=== PATIENT | male | born 1955 | race Caucasian/White ===

== ENCOUNTER 2017-08-10 22:11 | Emergency (ER) | payer MEDICARE ==
[2017-08-10] MEDS: NORMAL SALINE 1000 ML 1,000 ML IV PRN ×2 (22:56→22:57)
--- NOTE | 2017-08-10 23:01 | ER Document Report ---
ED General - General Chief Complaint: Syncope Stated Complaint: FALL Time Seen by Provider: 08/10/17 22:19 Mode of Arrival: Medic Information source: Patient, Relative, Emergency Med Personnel, [facility] Records Notes: 62-year-old male with hyperlipidemia, COPD, seizures, previous CVA, daily alcohol use presents via EMS after what patient reports to be a trip and fall but bystanders thought to be a syncopal episode with seizure-like activity. Per the patient he tripped and fell while walking landing onto his right side. He denies loss of consciousness. He does admit to being outside all day at a pool green party. He states he only had 2 beers. Patient currently complaining of right shoulder and right elbow pain. He denies any preceding chest pain, palpitations, shortness of breath. EMS reports that the patient was found sitting in a chair alert and awake. Patient states he has been compliant with his seizure medications but is unsure what the name is. TRAVEL OUTSIDE OF THE [place] IN LAST 30 DAYS: No - HPI Onset: Just prior to arrival Onset/Duration: Sudden Quality of pain: Stabbing, Throbbing Severity: Moderate Associated symptoms: denies: Chest pain, Headache, Nausea, Vomiting, Shortness of breath, Sweating Exacerbated by: Movement Relieved by: Remaining still Similar symptoms previously: No Recently seen / treated by doctor: Yes - Related Data Allergies/Adverse Reactions: No Known Allergies Allergy (Verified 12/23/16 09:06) Past Medical History - General Information source: Patient, Emergency Med Personnel, [facility] Records - Social History Smoking Status: Former Smoker Frequency of alcohol use: Heavy Drug Abuse: None Lives with: Family Family History: Reviewed & Not Pertinent Patient has suicidal ideation: No Patient has homicidal ideation: No - Past Medical History Cardiac Medical History: Reports: Hx Hypercholesterolemia, Hx Hypertension Pulmonary Medical History: Reports: Hx COPD Neurological Medical History: Reports: Hx Seizures Renal/ Medical History: Denies: Hx Peritoneal Dialysis Past Surgical History: Reports: Hx Abdominal Surgery, Hx Cardiac Surgery, Hx Open Heart Surgery - Immunizations Hx Diphtheria, Pertussis, Tetanus Vaccination: No Review of Systems - Review of Systems Constitutional: denies: Fever, Weakness EENT: denies: Blurred vision, Difficulty swallowing Cardiovascular: denies: Chest pain, Palpitations, Heart racing, Dyspnea, Syncope , Lightheaded Respiratory: denies: Cough, Short of breath Gastrointestinal: denies: Abdominal pain, Nausea, Vomiting Genitourinary: denies: Dysuria, Flank pain Musculoskeletal: Joint pain, Muscle pain, Muscle stiffness. denies: Back pain, Neck pain Skin: Other - Right elbow abrasion Hematologic/Lymphatic: denies: Easy bruising Neurological/Psychological: denies: Confusion, Weakness, Seizure, Lost consciousness, Headaches, Speech impairment, Numbness, Suicidal ideation -: Yes All other systems reviewed and negative Physical Exam - Vital signs Vitals: Resp Pulse Ox 14 94 08/10/17 22:23 08/10/17 22:23 - Notes Notes: PHYSICAL EXAMINATION: GENERAL: Well-appearing, well-nourished and in no acute distress. GCS 15 HEAD: Atraumatic, normocephalic. EYES: Pupils equal round and reactive to light, extraocular movements intact, sclera anicteric, conjunctiva are normal. ENT: Nares patent, oropharynx clear without exudates. Moist mucous membranes. No hemanotympanum . No blood in nares. No dental fracture NECK: Normal range of motion, supple without lymphadenopathy. Trachea midline. No midline tenderness. LUNGS: Breath sounds clear to auscultation bilaterally and equal. No wheezes rales or rhonchi. HEART: Regular rate and rhythm without murmurs. Pulses intact all throughout. ABDOMEN: Soft, nontender, nondistended abdomen. No guarding, no rebound. No masses appreciated. Musculoskeletal: Right shoulder deformity, limited range of motion secondary to pain. No neuro deficits. Radial pulse intact. Sensation intact. Right elbow tender to palpation associated abrasion. NEUROLOGICAL: Cranial nerves grossly intact. Normal speech, normal gait. Normal sensory, motor, and reflex exams. PSYCH: Normal mood, normal affect. SKIN: Abrasion right elbow. Course - Re-evaluation Re-evalutation: Laboratory 08/10/17 08/10/17 08/10/17 22:48 22:48 22:48 WBC 8.0 RBC 4.05 L Hgb 13.1 L Hct 37.9 MCV 94 MCH 32.3 MCHC 34.5 RDW 14.8 H Plt Count 166 Seg Neutrophils % 54.9 Lymphocytes % 35.5 Monocytes % 6.7 Eosinophils % 2.2 Basophils % 0.7 Absolute Neutrophils 4.4 Absolute Lymphocytes 2.8 Absolute Monocytes 0.5 Absolute Eosinophils 0.2 Absolute Basophils 0.1 Sodium Cancelled Potassium Cancelled Chloride Cancelled Carbon Dioxide Cancelled Anion Gap Cancelled BUN Cancelled Creatinine Cancelled Est GFR ( Amer) Cancelled Est GFR (Non-Af Amer) Cancelled Glucose Cancelled Lactic Acid Calcium Cancelled Total Bilirubin Cancelled Direct Bilirubin Cancelled Neonat Total Bilirubin Cancelled Neonat Direct Bilirubin Cancelled Neonat Indirect Bili Cancelled AST Cancelled ALT Cancelled Alkaline Phosphatase Cancelled Creatine Kinase Cancelled CK-MB (CK-2) Cancelled Troponin I Cancelled Total Protein Cancelled Albumin Cancelled Serum Alcohol Cancelled 08/10/17 08/10/17 08/10/17 22:48 23:39 23:39 WBC RBC Hgb Hct MCV MCH MCHC RDW Plt Count Seg Neutrophils % Lymphocytes % Monocytes % Eosinophils % Basophils % Absolute Neutrophils Absolute Lymphocytes Absolute Monocytes Absolute Eosinophils Absolute Basophils Sodium 132.6 L Potassium 4.4 Chloride 99 Carbon Dioxide 21 L Anion Gap 13 BUN 13 Creatinine 0.96 Est GFR ( Amer) > 60 Est GFR (Non-Af Amer) > 60 Glucose 87 Lactic Acid Cancelled Calcium 8.0 L Total Bilirubin 0.4 Direct Bilirubin 0.3 Neonat Total Bilirubin Not Reportable Neonat Direct Bilirubin Not Reportable Neonat Indirect Bili Not Reportable AST 44 ALT 43 Alkaline Phosphatase 38 Creatine Kinase 289 H CK-MB (CK-2) 3.01 Troponin I < 0.012 Total Protein 6.0 L Albumin 3.5 Serum Alcohol 146 08/10/17 23:39 WBC RBC Hgb Hct MCV MCH MCHC RDW Plt Count Seg Neutrophils % Lymphocytes % Monocytes % Eosinophils % Basophils % Absolute Neutrophils Absolute Lymphocytes Absolute Monocytes Absolute Eosinophils Absolute Basophils Sodium Potassium Chloride Carbon Dioxide Anion Gap BUN Creatinine Est GFR ( Amer) Est GFR (Non-Af Amer) Glucose Lactic Acid 1.3 Calcium Total Bilirubin Direct Bilirubin Neonat Total Bilirubin Neonat Direct Bilirubin Neonat Indirect Bili AST ALT Alkaline Phosphatase Creatine Kinase CK-MB (CK-2) Troponin I Total Protein Albumin Serum Alcohol Chest X-Ray 08/10/17 22:30 IMPRESSION: No acute cardiopulmonary findings. Head CT 08/10/17 22:30 IMPRESSION: No acute findings. Small left temporal infarct/encephalomalacia. Left basal ganglia lacunar infarct. Shoulder X-Ray 08/10/17 22:30 IMPRESSION: Comminuted fracture of the right humeral head/neck. Elbow X-Ray 08/10/17 22:31 IMPRESSION: No acute findings. 62-year-old male with hyperlipidemia, COPD, seizures, previous CVA, daily alcohol use presents via EMS after what patient reports to be a trip and fall but bystanders thought to be a syncopal episode with seizure-like activity. Per the patient he tripped and fell while walking landing onto his right side. He denies loss of consciousness. He does admit to being outside all day at a pool green party. He states he only had 2 beers. Patient currently complaining of right shoulder and right elbow pain. He denies any preceding chest pain, palpitations, shortness of breath. EMS reports that the patient was found sitting in a chair alert and awake. Patient states he has been compliant with his seizure medications but is unsure what the name is. does present to the bedside and states that she did not witness the fall but that her daughter reported that the patient seemed to be staggering and then fell over. She is unsure whether patient lost consciousness but he is adamant that he remembers everything about the fall. Patient does have a seizure history and reports that he has been compliant with his Keppra. Patient is without tongue laceration, urinary incontinence. He reports seizures have been well controlled and cannot recall the last time he experienced one. Patient's fall is likely secondary to alcohol intoxication. He has had no seizure-like activity during his ED course. 08/11/17 00:[address] Aggarwal from orthopedic surgery who advises sling and follow-up in the office next week. 08/11/17 01:59 Both patient and are requesting discharge home. They are declining additional fluids for mild hypotension. Patient and his state that his blood pressure and heart rate are always on the lower side. Patient is currently only complaining of right shoulder pain. He is alert and oriented 4. 08/11/17 02:05 Patient advised multiple times that he should stay for additional fluids but he continues to decline. He was encouraged to return to the emergency department if he experiences lightheadedness, headache, chest pain or any other concerning symptoms. Patient did receive 2 L of normal saline during his ED course, fentanyl, tetanus, calcium. CBC shows no leukocytosis, mild anemia. CMP shows mild hyponatremia, hypocalcemia. Patient has a mildly elevated CK. EtOH is 146. Troponin within normal limits. Imaging significant for a right humeral head comminuted fracture. CT of the brain shows remote infarct and no acute process (known previous CVA). Neuro exam is within normal limits. Patient and are insistent upon discharge. Encouraged to return to the emergency department with any needs. 08/11/17 02:24 08/11/17 02:27 08/11/17 02:33 - Vital Signs Vital signs: Temp Pulse Resp BP Pulse Ox 14 116/77 97 08/11/17 00:02 08/11/17 00:02 08/11/17 00:02 - Laboratory Result Diagrams: 08/10/17 22:48 08/10/17 23:39 Laboratory results interpreted by me: 08/10/17 08/10/17 22:48 23:39 RBC 4.05 L Hgb 13.1 L RDW 14.8 H Sodium 132.6 L Carbon Dioxide 21 L Calcium 8.0 L Creatine Kinase 289 H Total Protein 6.0 L - Diagnostic Test Radiology reviewed: Image reviewed, Reports reviewed - EKG Interpretation by Me EKG shows normal: Sinus rhythm Rate: Bradycardia Rhythm: NSR Discharge - Discharge Clinical Impression: Hypocalcemia, Alcohol use, Bradycardia, Elevated CK Comminuted right humeral fracture Qualifiers: Encounter type: initial encounter Humerus Location: shaft Fracture type: closed Fracture alignment: nondisplaced Qualified Code(s): S42.354A - Nondisplaced comminuted fracture of shaft of humerus, right arm, initial encounter for closed fracture Fall Qualifiers: Encounter type: initial encounter Qualified Code(s): W19.XXXA - Unspecified fall, initial encounter Elbow abrasion Qualifiers: Encounter type: initial encounter Laterality: right Qualified Code(s): S50.311A - Abrasion of right elbow, initial encounter Hypotension Qualifiers: Hypotension type: unspecified hypotension type Qualified Code(s): I95.9 - Hypotension, unspecified Condition: Good Disposition: HOME, SELF-CARE Instructions: Abrasions ([facility]), Hyponatremia ([facility]), Hypotension ([facility]), Fracture Proximal Humerus, Tetanus Immunization Given ([facility]) Additional Instructions: Your lab work does show that you have low calcium and low sodium. You were provided to supplement during her ED course and will be prescribed a supplement for the next week. Please drink plenty of fluids, abstain from alcohol. Please follow-up with Dr. Aggarwal from orthopedic surgery. His number is on your discharge instructions. Please call the office first thing tomorrow morning. Please remain in the sling until seen by him. Please ice the shoulder and elbow as much as you are able. Prescriptions: Calcium Carbonate [Os-Jacinto 500 mg Tablet (Oyster-Shell)] 500 mg PO DAILY #14 tab Hydrocodone/Acetaminophen [[place] 5-325 mg Tablet] 1 tab PO Q6H #12 tablet Ibuprofen [Motrin 600 Mg Tablet] 600 mg PO TID #15 tablet Referrals: SHOLA ISLAS MD [Primary Care Provider] - Follow up as needed KAROLYN AGGARWAL DO [ACTIVE STAFF] - Follow up as needed ED NIH Stroke Scale - NIH Stroke Scale *: 1. NIH scale should be completed with appropriate accompanying assessment tools. *: 2. The NIH should reflect what the patient is capable of doing and should not be coached by the clinician. 1a. Level of Consciousness: 0=Alert;keenly responsive -: 1=Drowsy -: 2=Obtunded -: 3=Coma/unresponsive or reflex to noxious stimuli. 1a. Responses: 0 1b. Orientation Questions: a. What month is it? -: b. How old are you? -: 0=Answers both questions correctly. -: 1=Answers one question correctly or patient is intubated or has orotracheal trauma. -: 2=Answers neither question correctly. 1b. Responses: 0 1c. Response to commands: a. Open and close eyes? -: b. Tobacco Prizer and release hand? -: Credit is given despite weakness. Demonstration of task is permitted. Substitute command if hands cannot be used. -: 0=Performs both tasks correctly -: 1=Performs one task correctly -: 2=Performs neither task correctly 1c. Responses: 0 2. Gaze: Establish eye contact and instruct patient to "Follow my finger" -: 0=Normal -: 1=Partial gaze palsy. Gaze is abnormal in one or both eyes, but where forced deviation or total gaze paresis is not present. -: 2=Forced deviation or total gaze paresis. 2. Responses: 0 3. Visual Parra: Sees fingers in all four quadrants. -: 0=No visual loss. -: 1=Partial hemianopsia. -: 2=Complete hemianopsia. -: 3=Bilateral hemianopsia (including Cortical blindness) 3. Responses: 0 4. Facial Movement: Instruct patient to: -: a. Show me your teeth -: b. Raise your eyebrows -: c. Close your eyes -: d. Smile -: 0=Normal symmetrical movement -: 1=Minor paralysis (flattened nasolabial fold, asymmetry on smiling). -: 2=Partial paralysis (total or near total paralysis of lower face). -: 3=Complete paralysis of upper and lower face 4. Responses: 0 5. Motor functions (left arm): Alternate sides and extend each arm with palms down (90 degrees if sitting or 45 degrees for supine). -: 0=No drift;limb holds for full 10 seconds. -: 1=Drift; limb holds but drifts down before full 10 seconds, but does not hit bed. -: 2=Some effort against gravity; limb cannot get to or maintain position. -: 3=No effort against gravity; limb falls. -: 4=No movement. -: UN=Amputation, joint fusion, explain in comments. 5. Responses (left arm): 0 5. Motor Functions (right arm): Alternate sides and extend each arm with palms down (90 degrees if sitting or 45 degrees for supine). -: 0=No drift;limb holds for full 10 seconds. -: 1=Drift; limb holds but drifts down before full 10 seconds, but does not hit bed. -: 2=Some effort against gravity; limb cannot get to or maintain position. -: 3=No effort against gravity; limb falls. -: 4=No movement. -: UN=Amputation, joint fusion, explain in comments. 5. Responses (right arm): 0 6. Motor Functions (left leg): With patient lying supine, alternate sides and extend each leg (30 degrees always while supine). -: 0=No drift, leg holds position for full 5 seconds -: 1=Drift; leg falls before full 5 seconds but does not hit bed. -: 2=Some effort against gravity, leg falls to bed but some effort against gravity. -: 3=No effort against gravity, leg falls to bed immediately. -: 4=No movement. -: UN=Amputation, joint fusion; explain in comments. 6. Responses (left leg): 0 6. Motor Functions (right leg): With patient lying supine, alternate sides and extend each leg (30 degrees always while supine). -: 0=No drift, leg holds position for full 5 seconds -: 1=Drift; leg falls before full 5 seconds but does not hit bed. -: 2=Some effort against gravity, leg falls to bed but some effort against gravity. -: 3=No effort against gravity, leg falls to bed immediately. -: 4=No movement. -: UN=Amputation, joint fusion; explain in comments. 6. Responses (right leg): 0 7. Limb Ataxia: With eyes open instruct patient to: -: a. "Touch your finger to your nose". -: b. "Touch your heel to your torres" -: 0=Absent -: 1=Present in one limb. -: 2=Present in two limbs. -: UN=Amputation or joint fusion; explain in comments. 7. Responses: 0 8. Sensory: Test sensation using pinprick or noxious stimuli. Test as many body parts as possible. -: 0=Normal;no sensory loss -: 1=Mile to moderate sensory loss (patient feels pin prick but is less sharp on affected side). -: 2=Severe or total sensory loss. 8. Responses: 0 9. Best Language: Instruct patient to: -: a. "Describe what you see in this picture." -: b. "Name the items in this picture." -: c. "Read these sentences." -: 0=No aphasia, normal -: 1=Mild to moderate aphasia. -: 2=Severe aphasia -: 3=Mute, global aphasia, no usable speech or auditory comprehension. 9. Responses: 0 10. Articulation, Dysarthia: Instruct patient to: -: "Read these words" or "Repeat these words" -: 0=Normal -: 1=Mild to moderate; patient may slur some words but can be understood without difficulty. -: 2=Severe; patients speech so slurred as to be unintelligible in the absence of dysphasia. -: UN=Intubated or other physical barrier, explain in comments. 10. Responses: 0 11. Extinction or inattention: 0=No abnormality -: 1= Visual, tactile, auditory, spatial, or personal inattention or extinction to bilateral simulation in one or the sensory modalities. -: 2=Profound katlyn-inattention or katlyn-inattention to more than one modality; does not recognize own hand. 11. Responses: 0 Total Score: 0
[2017-08-10 23:08] LABS: ABSOLUTE BASOPHILS # (AUTO) 0.1 10^3/uL (0.0-0.2); ABSOLUTE EOSINOPHILS # (AUTO) 0.2 10^3/uL (0.0-0.6); ABSOLUTE LYMPHOCYTES (AUTO) 2.8 10^3/uL (0.5-4.7); ABSOLUTE MONOCYTES (AUTO) 0.5 10^3/uL (0.1-1.4); ABSOLUTE NEUT (AUTO) 4.4 10^3/uL (1.7-8.2); BASOPHILS % (AUTO) 0.7 % (0-2); EOSINOPHILS % (AUTO) 2.2 % (0-6); HEMATOCRIT 37.9 % (37.9-51.0); HEMOGLOBIN 13.1 g/dL (13.5-17.0); LYMPHOCYTES % (AUTO) 35.5 % (13-45); MEAN CORPUSCULAR HEMOGLOBIN 32.3 pg (27.0-33.4); MEAN CORPUSCULAR HGB CONC 34.5 g/dL (32.0-36.0); MEAN CORPUSCULAR VOLUME 94 fl (80-97); MONOCYTES % (AUTO) 6.7 % (3-13); PLATELET COUNT 166 10^3/uL (150-450); RED BLOOD COUNT 4.05 10^6/uL (4.35-5.55); RED CELL DISTRIBUTION WIDTH 14.8 % (11.5-14.0); SEGMENTED NEUTROPHILS % (AUTO) 54.9 % (42-78); TOTAL CELLS COUNTED % (AUTO) 100 %
--- NOTE | 2017-08-10 23:36 | RADIOLOGY REPORT (SQ) ---
EXAM DESCRIPTION: CT HEAD WITHOUT IV CONTRAST CLINICAL HISTORY: 62 years Male, fall COMPARISON: 12.23.16, report only TECHNIQUE: No contrast. Coronal and sagittal reformat. This exam was performed according to our departmental dose-optimization program, which includes automated exposure control, adjustment of the mA and/or kV according to patient size and/or use of iterative reconstruction technique. FINDINGS: No hemorrhage. No mass, mass effect, or midline shift. Small encephalomalacia of the left posterior temporal lobe, lacunar infarct at the left globus pallidus/basal ganglia, atherosclerosis. Brain and extra-axial structures appear otherwise intact. IMPRESSION: No acute findings. Small left temporal infarct/encephalomalacia. Left basal ganglia lacunar infarct.
--- NOTE | 2017-08-10 23:47 | RADIOLOGY REPORT (SQ) ---
EXAM DESCRIPTION: XR SHOULDER 2 OR MORE VIEWS COMPLETED DATE/TME: 08/10/2017 22:30 CLINICAL HISTORY: 62 years, Male, fall COMPARISON: None. NUMBER OF VIEWS: 4 LIMITATIONS: None. FINDINGS: Comminuted intra-articular fracture of the right humeral head and surgical neck with up to 1.4 cm impaction. IMPRESSION: Comminuted fracture of the right humeral head/neck.
--- NOTE | 2017-08-10 23:48 | RADIOLOGY REPORT (SQ) ---
EXAM DESCRIPTION: XR ELBOW 3 VIEWS CLINICAL HISTORY: 62 years Male, fall COMPARISON: None. Findings: Small enthesophytes in the posterior right ulnar olecranon and posterior humeral condyles. Bones, joints, and soft tissues of the XR RIGHT ELBOW 4 VIEWS appear otherwise intact. IMPRESSION: No acute findings.
--- NOTE | 2017-08-10 23:49 | RADIOLOGY REPORT (SQ) ---
EXAM DESCRIPTION: XR CHEST 1 VIEW CLINICAL HISTORY: 62 years Male, fall COMPARISON: 17 NUMBER OF VIEWS/TECHNIQUE: 1/AP FINDINGS: Adequate lung volume, clear parenchyma, prominent interstitium, normal cardiac silhouette, and sternotomy. IMPRESSION: No acute cardiopulmonary findings.
[2017-08-11 00:09] LABS: ALANINE AMINOTRANSFERASE 43 U/L (21-72); ALBUMIN 3.5 g/dL (3.5-5.0); ALCOHOL 146 mg/dL (NONE DETECTED); ALKALINE PHOSPHATASE 38 U/L (38-126); ANION GAP 13 (5-19); ASPARTATE AMINO TRANSFERASE 44 U/L (17-59); BILIRUBIN,DIRECT 0.3 mg/dL (0.0-0.4); BILIRUBIN,TOTAL 0.4 mg/dL (0.2-1.3); BLOOD UREA NITROGEN 13 mg/dL (7-20); CARBON DIOXIDE 21 mmol/L (22-30); CHLORIDE 99 mmol/L (98-107); CREATINE KINASE 289 U/L (55-170); GLUCOSE 87 mg/dL (75-110); POTASSIUM 4.4 mmol/L (3.6-5.0); SODIUM 132.6 mmol/L (137-145)
[2017-08-11 00:17] LABS: CREATINE KINASE MB 3.01 ng/mL (<4.55)
[2017-08-11 00:25] LABS: TROPONIN I < 0.012 ng/mL
[2017-08-11] MEDS ORDERED: FENTANYL CITRATE INJ/PF 100 MCG/2 ML AMPUL IV ONE (00:25)
[2017-08-11] MEDS ORDERED: CALCIUM CARBONATE 500 MG TABLET PO ONE (00:55)
[2017-08-11] MEDS ORDERED: DIPH/PERTUSS(ACELL)/TETANUS VAC/PF 0.5 ML SYR (>=10YO) IM ONE (01:11)
[2017-08-11] MEDS ORDERED: NORMAL SALINE 1000 ML 1,000 ML IV ONE ×2 (01:38→01:40)
[2017-08-11] MEDS ORDERED: CALCIUM CARBONATE 500 MG TABLET ONE (01:49)
[2017-08-11 02:50] VITALS: BP 94/64
--- NOTE | 2017-08-12 07:36 | EKG REPORT ---
SEVERITY:- ABNORMAL ECG - SINUS RHYTHM INCOMPLETE RIGHT BUNDLE BRANCH BLOCK NONSPECIFIC LATERAL ST-T CHANGES : Confirmed by: Yosvany Ortiz MD 12-Aug-2017 07:35:34
== END 2017-08-11 02:00 | disposition home or self-care (01) ==
LOC: ER 22:11
DX: S42.354A Nondisplaced comminuted fracture of shaft of humerus, right arm, initial encounter for closed fracture (principal); S50.311A Abrasion of right elbow, initial encounter; M25.511 Pain in right shoulder; M25.521 Pain in right elbow; W19.XXXA Unspecified fall, initial encounter; Y93.01 Activity, walking, marching and hiking; I95.9 Hypotension, unspecified; E87.1 Hypo-osmolality and hyponatremia; E83.51 Hypocalcemia; J44.9 Chronic obstructive pulmonary disease, unspecified; R00.1 Bradycardia, unspecified; R74.8 Abnormal levels of other serum enzymes; I10 Essential (primary) hypertension; D64.9 Anemia, unspecified; R56.9 Unspecified convulsions; Z79.899 Other long term (current) drug therapy; Z72.89 Other problems related to lifestyle; Z86.73 Personal history of transient ischemic attack (TIA), and cerebral infarction without residual deficits; Z87.891 Personal history of nicotine dependence; Z23 Encounter for immunization
CPT/HCPCS: 93005; 99285; 96361; 90471; 96374; 36415; 82553; 80307; 82550; 85025; 80053; 84484; 83605; 71045; 73080; 73030; 70450; 90715; 93010; A9270; J3010; J7030

== ENCOUNTER 2018-07-03 16:27 | Emergency (ER) | payer MEDICARE ==
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
--- NOTE | 2018-07-03 18:03 | RADIOLOGY REPORT (SQ) ---
EXAM DESCRIPTION: CHEST SINGLE VIEW COMPLETED DATE/TIME: 07/03/2018 5:42 pm REASON FOR STUDY: weakness COMPARISON: None. EXAM PARAMETERS: NUMBER OF VIEWS: One view. TECHNIQUE: Single frontal radiographic view of the chest acquired. RADIATION DOSE: NA LIMITATIONS: None. FINDINGS: LUNGS AND PLEURA: No opacities, masses or pneumothorax. No pleural effusion. MEDIASTINUM AND HILAR STRUCTURES: No masses. Contour normal. HEART AND VASCULAR STRUCTURES: Heart normal in size. Normal vasculature. BONES: There is a moderately displaced transverse fracture of the right humeral neck. HARDWARE: Midline surgical changes. OTHER: No other significant finding. IMPRESSION: Age-indeterminate transverse fracture of the right humeral neck. No evidence of acute c ardiopulmonary abnormality. COMMENT: Documentation of communication of results. Unexpected findings discussed with the treating physician, Dr. Sotelo, via telephone at 1755 hours. TECHNICAL DOCUMENTATION: JOB ID: [id number] [employer]- All Rights Reserved Reading location - IP/workstation name: [email or web address]
[2018-07-03] MEDS ORDERED: IPRATROPIUM/ALBUTEROL 0.5-2.5 MG/3 ML AMPUL NEB ONE (18:16)
[2018-07-03 18:29] LABS: APPEARANCE,URINE CLEAR; BILIRUBIN,URINE NEGATIVE (NEGATIVE); COLOR,URINE YELLOW; GLUCOSE, URINE NEGATIVE (NEGATIVE); KETONES,URINE NEGATIVE (NEGATIVE); LEUKOCYTE ESTERASE,URINE NEGATIVE (NEGATIVE); NITRITE,URINE NEGATIVE (NEGATIVE); PROTEIN,URINE NEGATIVE (NEGATIVE); URINE SPECIFIC GRAVITY 1.006; UROBILINOGEN,URINE NEGATIVE mg/dL (<2.0)
--- NOTE | 2018-07-03 18:46 | RADIOLOGY REPORT (SQ) ---
EXAM DESCRIPTION: SHOULDER RIGHT 2 OR MORE VIEWS COMPLETED DATE/TIME: 07/03/2018 6:34 pm REASON FOR STUDY: right shoulder injury COMPARISON: None. NUMBER OF VIEWS: Three views. TECHNIQUE: Internal rotation, external rotation, and Y view images acquired of the right shoulder. LIMITATIONS: None. FINDINGS: MINERALIZATION: Normal. BONES: Humeral neck fracture. The proximal humerus has a somewhat permeated appearance. There is peggy cency in the humeral neck. JOINTS: No dislocation. VISUALIZED LUNGS AND RIBS: No pneumothorax. No rib fracture. SOFT TISSUES: No radiopaque foreign body. OTHER: No other significant finding. IMPRESSION: Humeral neck fracture. May represent a pathological fracture. TECHNICAL DOCUMENTATION: JOB ID: [id number] [employer]- All Rights Reserved Reading location - IP/workstation name: [email or web address]
--- NOTE | 2018-07-03 18:46 | RADIOLOGY REPORT (SQ) ---
EXAM DESCRIPTION: HUMERUS RIGHT COMPLETED DATE/TIME: 07/03/2018 6:34 pm REASON FOR STUDY: right humerus fracture noted on cxr, arm pain COMPARISON: None. NUMBER OF VIEWS: Two views. TECHNIQUE: Two radiographic images were acquired of the right humerus to include elbow and shoulder in at least one projection. LIMITATIONS: None. FINDINGS: MINERALIZATION: Normal. BONES: Humeral neck fracture. Cannot exclude a pathological fracture. SOFT TISSUES: No obvious swelling or foreign body. OTHER: No other significant finding. IMPRESSION: Humeral neck fracture. Cannot exclude pathological fracture. TECHNICAL DOCUMENTATION: JOB ID: [id number] [employer]- All Rights Reserved Reading location - IP/workstation name: [email or web address]
[2018-07-03 19:25] LABS: ABSOLUTE MONOCYTES (AUTO) 0.4 10^3/uL (0.1-1.4); ABSOLUTE NEUT (AUTO) 3.8 10^3/uL (1.7-8.2); BASOPHILS % (AUTO) 0.7 % (0-2); EOSINOPHILS % (AUTO) 0.7 % (0-6); HEMATOCRIT 39.8 % (37.9-51.0); HEMOGLOBIN 13.5 g/dL (13.5-17.0); LYMPHOCYTES % (AUTO) 32.1 % (13-45); MEAN CORPUSCULAR HEMOGLOBIN 32.3 pg (27.0-33.4); MEAN CORPUSCULAR HGB CONC 33.8 g/dL (32.0-36.0); MEAN CORPUSCULAR VOLUME 96 fl (80-97); MONOCYTES % (AUTO) 6.5 % (3-13); PLATELET COUNT 195 10^3/uL (150-450); RED BLOOD COUNT 4.16 10^6/uL (4.35-5.55); RED CELL DISTRIBUTION WIDTH 15.5 % (11.5-14.0); TOTAL CELLS COUNTED % (AUTO) 100 %; WHITE BLOOD COUNT 6.3 10^3/uL (4.0-10.5)
[2018-07-03 19:38] LABS: ALANINE AMINOTRANSFERASE 73 U/L (21-72); ALBUMIN 3.5 g/dL (3.5-5.0); ALKALINE PHOSPHATASE 50 U/L (38-126); ANION GAP 8 (5-19); ASPARTATE AMINO TRANSFERASE 99 U/L (17-59); BILIRUBIN,DIRECT 0.3 mg/dL (0.0-0.4); BILIRUBIN,TOTAL 0.5 mg/dL (0.2-1.3); BLOOD UREA NITROGEN 10 mg/dL (7-20); CALCIUM 8.8 mg/dL (8.4-10.2); CARBON DIOXIDE 31 mmol/L (22-30); CHLORIDE 92 mmol/L (98-107); CREATINE KINASE 259 U/L (55-170); GLUCOSE 100 mg/dL (75-110); POTASSIUM 4.8 mmol/L (3.6-5.0); SODIUM 131.2 mmol/L (137-145); TOTAL PROTEIN 6.5 g/dL (6.3-8.2)
[2018-07-03] MEDS ORDERED: NORMAL SALINE 500 ML IV ONE (19:54)
[2018-07-03 20:31] VITALS: BP 106/64
[2018-07-03] MEDS ORDERED: HYDROCODONE/ACETAMINOPHEN 5-325 MG (6 TAB/ER DISP) PO PRN (20:31)
== END 2018-07-03 20:58 | disposition home or self-care (01) ==
LOC: ER 16:27
DX: S42.201A Unspecified fracture of upper end of right humerus, initial encounter for closed fracture (principal); W19.XXXA Unspecified fall, initial encounter; E87.1 Hypo-osmolality and hyponatremia; R53.1 Weakness; R56.9 Unspecified convulsions; I10 Essential (primary) hypertension; J44.9 Chronic obstructive pulmonary disease, unspecified; I25.10 Atherosclerotic heart disease of native coronary artery without angina pectoris; Z86.73 Personal history of transient ischemic attack (TIA), and cerebral infarction without residual deficits; Z87.891 Personal history of nicotine dependence
CPT/HCPCS: 94640; 99284; 96360; 36415; 87086; 82550; 85025; 80053; 81001; 83880; 71045; 73060; 73030; J7040; A9270 ×2; J7620

== ENCOUNTER 2018-07-06 13:27 | Emergency (ER) | payer MEDICARE ==
[2018-07-06 14:11] LABS: ABSOLUTE BASOPHILS # (AUTO) 0.1 10^3/uL (0.0-0.2); ABSOLUTE EOSINOPHILS # (AUTO) 0.1 10^3/uL (0.0-0.6); ABSOLUTE LYMPHOCYTES (AUTO) 1.2 10^3/uL (0.5-4.7); ABSOLUTE MONOCYTES (AUTO) 0.4 10^3/uL (0.1-1.4); BASOPHILS % (AUTO) 1.5 % (0-2); EOSINOPHILS % (AUTO) 1.4 % (0-6); HEMATOCRIT 39.4 % (37.9-51.0); HEMOGLOBIN 13.3 g/dL (13.5-17.0); LYMPHOCYTES % (AUTO) 20.9 % (13-45); MEAN CORPUSCULAR HEMOGLOBIN 32.7 pg (27.0-33.4); MEAN CORPUSCULAR HGB CONC 33.9 g/dL (32.0-36.0); MEAN CORPUSCULAR VOLUME 96 fl (80-97); MONOCYTES % (AUTO) 6.4 % (3-13); PLATELET COUNT 149 10^3/uL (150-450); RED BLOOD COUNT 4.09 10^6/uL (4.35-5.55); RED CELL DISTRIBUTION WIDTH 15.4 % (11.5-14.0); SEGMENTED NEUTROPHILS % (AUTO) 69.8 % (42-78); TOTAL CELLS COUNTED % (AUTO) 100 %; WHITE BLOOD COUNT 5.8 10^3/uL (4.0-10.5)
[2018-07-06 14:32] LABS: ALANINE AMINOTRANSFERASE 84 U/L (21-72); ALBUMIN 3.6 g/dL (3.5-5.0); ALKALINE PHOSPHATASE 48 U/L (38-126); ANION GAP 12 (5-19); ASPARTATE AMINO TRANSFERASE 101 U/L (17-59); BILIRUBIN,DIRECT 0.2 mg/dL (0.0-0.4); BILIRUBIN,TOTAL 0.7 mg/dL (0.2-1.3); BLOOD UREA NITROGEN 8 mg/dL (7-20); CALCIUM 8.4 mg/dL (8.4-10.2); CARBON DIOXIDE 27 mmol/L (22-30); CHLORIDE 95 mmol/L (98-107); CREATINE KINASE 290 U/L (55-170); GLUCOSE 95 mg/dL (75-110); POTASSIUM 4.3 mmol/L (3.6-5.0); SODIUM 134.1 mmol/L (137-145); TOTAL PROTEIN 6.3 g/dL (6.3-8.2)
[2018-07-06 14:46] LABS: TROPONIN I < 0.012 ng/mL
[2018-07-06] MEDS ORDERED: IPRATROPIUM/ALBUTEROL 0.5-2.5 MG/3 ML AMPUL NEB ONE (15:13)
[2018-07-06 16:00] VITALS: BP 126/72
--- NOTE | 2018-07-06 16:12 | ER Document Report ---
ED General - General Chief Complaint: Dizziness Stated Complaint: DIZZY Time Seen by Provider: 07/06/18 14:09 Primary Care Provider: JACQUELYN WELCH MD [Primary Care Provider] - Follow up as needed Notes: 63-year-old male brought in by ambulance dizziness at home. He states he was in his usual state of health and became lightheaded when sitting out in his shed, had a seizure, 8, then drank a half a beer, then became short of breath. She is concerned because he has a "weak voice", "slurred speech with certain words", and "is walking funny". She thinks that he might have Parkinson's or cancer. Patient is alert and oriented and conversing appropriately with me at this time. He denies any fevers or chills, nausea or vomiting, chest pain, numbness or tingling in any of his extremities, abdominal pain. TRAVEL OUTSIDE OF THE [place] IN LAST 30 DAYS: No - Related Data Allergies/Adverse Reactions: No Known Allergies Allergy (Verified 12/23/16 09:06) Past Medical History - Social History Smoking Status: Former Smoker Chew tobacco use (# tins/day): No Frequency of alcohol use: Heavy Drug Abuse: None Family History: Reviewed & Not Pertinent Patient has suicidal ideation: No Patient has homicidal ideation: No - Past Medical History Cardiac Medical History: Reports: Hx Hypercholesterolemia, Hx Hypertension Pulmonary Medical History: Reports: Hx COPD Neurological Medical History: Reports: Hx Seizures Renal/ Medical History: Denies: Hx Peritoneal Dialysis Past Surgical History: Reports: Hx Abdominal Surgery, Hx Cardiac Surgery, Hx Open Heart Surgery - Immunizations Hx Diphtheria, Pertussis, Tetanus Vaccination: No Review of Systems - Review of Systems Constitutional: See HPI EENT: No symptoms reported Cardiovascular: See HPI Respiratory: See HPI Gastrointestinal: See HPI Genitourinary: See HPI Male Genitourinary: No symptoms reported Musculoskeletal: No symptoms reported Skin: No symptoms reported Hematologic/Lymphatic: No symptoms reported Neurological/Psychological: See HPI Physical Exam - Vital signs Vitals: Pulse Resp BP Pulse Ox 69 19 103/59 L 91 L 07/06/18 13:49 07/06/18 13:49 07/06/18 13:49 07/06/18 13:49 - Notes Notes: PHYSICAL EXAMINATION: Reviewed vital signs and charting by RN GENERAL: Alert, interacts well. No acute distress. HEAD: Normocephalic, atraumatic. EYES: Pupils equal and round. Extraocular movements intact. ENT: Oral mucosa moist, tongue midline. NECK: Full range of motion. Supple. Trachea midline. LUNGS: Diffuse inspiratory and expiratory wheezes. Aspiratory distress HEART: Regular rate and rhythm. No murmur ABDOMEN: soft, non-tender.distended. Bowel sounds present. no McBurney's point tenderness, no Kaufman sign. EXTREMITIES: Moves all 4 extremities spontaneously. No edema, No cyanosis. Normal distal neurovascular exam BACK: No CVAT NEUROLOGIC: Oriented and appropriate. Normal speech. PSYCH: Normal affect, normal mood. SKIN: Warm, dry, normal turgor. No rashes or lesions noted. Course - Re-evaluation Re-evalutation: 07/06/18 16:17 Alert and oriented. Normal neurologic exam, no focal neuro deficits. A blood EtOH was obtained and it was 271. Patient states he just wants to go home. All other lab work was unremarkable and within normal limits. At this time I do not suspect CVA, ACS, any seizure-like activity, or any other concerning etiology. Patient received DuoNeb's twice and reports reports feeling better. Patient was not wearing his sling given to him for his existing humeral fracture. I told him that it is important that he wears it and he could cause further damage if he does not. He is following up with orthopedics and has an appointment set up. At this time patient is stable for discharge - Vital Signs Vital signs: Temp Pulse Resp BP Pulse Ox 69 18 126/72 H 98 07/06/18 13:49 07/06/18 15:01 07/06/18 15:01 07/06/18 15:01 - Laboratory Result Diagrams: 07/06/18 13:55 07/06/18 13:55 Laboratory results interpreted by me: 07/06/18 07/06/18 13:55 13:55 RBC 4.09 L Hgb 13.3 L RDW 15.4 H Plt Count 149 L Sodium 134.1 L Chloride 95 L AST 101 H ALT 84 H Creatine Kinase 290 H Discharge - Discharge Clinical Impression: Dizziness, Wheezing Condition: Good Disposition: HOME, SELF-CARE Additional Instructions: You were here for dizziness. There is nothing in your lab work that was concerning. It is unclear why this happened but it could be related to alcohol use, or it could be related to like you said sitting in a hot shed. It is important that you wear your sling to prevent any further damage to your shoulder or any of the vessels in that area. If you have develop acute weakness, paralysis in one or more of your arms or legs, acute shortness of breath, severe chest pain, or have any other concerns please merely return to the emergency department. Referrals: JACQUELYN WELCH MD [Primary Care Provider] - Follow up as needed
[2018-07-06 16:17] LABS: APPEARANCE,URINE CLEAR; BILIRUBIN,URINE NEGATIVE (NEGATIVE); COLOR,URINE STRAW; GLUCOSE, URINE NEGATIVE (NEGATIVE); KETONES,URINE NEGATIVE (NEGATIVE); LEUKOCYTE ESTERASE,URINE NEGATIVE (NEGATIVE); NITRITE,URINE NEGATIVE (NEGATIVE); PROTEIN,URINE NEGATIVE (NEGATIVE); URINE SPECIFIC GRAVITY 1.004; UROBILINOGEN,URINE NEGATIVE mg/dL (<2.0)
--- NOTE | 2018-07-06 22:38 | EKG REPORT ---
SEVERITY:- ABNORMAL ECG - SINUS RHYTHM PROBABLE RIGHT VENTRICULAR HYPERTROPHY ABNORMAL T, CONSIDER ISCHEMIA, ANTERIOR LEADS : Confirmed by: Rell Munguia 06-Jul-2018 22:37:43
== END 2018-07-06 16:52 | disposition home or self-care (01) ==
LOC: ER 13:27
DX: R42 Dizziness and giddiness (principal); R06.2 Wheezing; R56.9 Unspecified convulsions; R06.02 Shortness of breath; Z87.891 Personal history of nicotine dependence; I10 Essential (primary) hypertension; J44.9 Chronic obstructive pulmonary disease, unspecified
CPT/HCPCS: 93005; 94640; 99284; 36415; 82553; 80307; 82550; 85025; 80053; 81001; 84484; 93010; A9270; J7620

== ENCOUNTER 2018-07-25 16:02 | Emergency (ER) | payer MEDICARE ==
[2018-07-25 16:38] LABS: ABSOLUTE EOSINOPHILS # (AUTO) 0.1 10^3/uL (0.0-0.6); ABSOLUTE LYMPHOCYTES (AUTO) 1.6 10^3/uL (0.5-4.7); ABSOLUTE MONOCYTES (AUTO) 0.4 10^3/uL (0.1-1.4); ABSOLUTE NEUT (AUTO) 3.9 10^3/uL (1.7-8.2); BASOPHILS % (AUTO) 0.4 % (0-2); HEMATOCRIT 38.2 % (37.9-51.0); LYMPHOCYTES % (AUTO) 26.1 % (13-45); MEAN CORPUSCULAR HEMOGLOBIN 33.2 pg (27.0-33.4); MEAN CORPUSCULAR HGB CONC 33.9 g/dL (32.0-36.0); MEAN CORPUSCULAR VOLUME 98 fl (80-97); MONOCYTES % (AUTO) 7.1 % (3-13); PLATELET COUNT 179 10^3/uL (150-450); RED BLOOD COUNT 3.91 10^6/uL (4.35-5.55); RED CELL DISTRIBUTION WIDTH 16.6 % (11.5-14.0); SEGMENTED NEUTROPHILS % (AUTO) 64.4 % (42-78); TOTAL CELLS COUNTED % (AUTO) 100 %; WHITE BLOOD COUNT 6.1 10^3/uL (4.0-10.5)
[2018-07-25 17:01] LABS: ALANINE AMINOTRANSFERASE 33 U/L (21-72); ALBUMIN 3.5 g/dL (3.5-5.0); ALKALINE PHOSPHATASE 43 U/L (38-126); ANION GAP 10 (5-19); ASPARTATE AMINO TRANSFERASE 39 U/L (17-59); BILIRUBIN,DIRECT 0.2 mg/dL (0.0-0.4); BILIRUBIN,TOTAL 0.4 mg/dL (0.2-1.3); BLOOD UREA NITROGEN 9 mg/dL (7-20); CALCIUM 7.9 mg/dL (8.4-10.2); CARBON DIOXIDE 25 mmol/L (22-30); CHLORIDE 90 mmol/L (98-107); GLUCOSE 91 mg/dL (75-110); POTASSIUM 4.8 mmol/L (3.6-5.0); SODIUM 125.1 mmol/L (137-145)
[2018-07-25] MEDS ORDERED: NORMAL SALINE 1000 ML 2,000 ML IV ONE (17:10)
[2018-07-25] MEDS ORDERED: PREDNISONE 20 MG TABLET PO ONE (17:26)
[2018-07-25] MEDS ORDERED: IPRATROPIUM/ALBUTEROL 0.5-2.5 MG/3 ML AMPUL NEB ONE (17:26)
--- NOTE | 2018-07-25 17:53 | RADIOLOGY REPORT (SQ) ---
EXAM DESCRIPTION: CHEST SINGLE VIEW COMPLETED DATE/TIME: 07/25/2018 5:39 pm REASON FOR STUDY: cough/wheezing COMPARISON: 07/03/2018 NUMBER OF VIEWS: One view. TECHNIQUE: Single frontal radiographic view of the chest acquired. LIMITATIONS: None. FINDINGS: LUNGS AND PLEURA: No opacities, masses or pneumothorax. No pleural effusion. MEDIASTINUM AND HILAR STRUCTURES: No masses or contour abnormality. HEART AND VASCULATURE: Cardiac enlargement. Vascular congestion. BONES: Proximal right humeral fracture unchanged. HARDWARE: CABG. OTHER: No other significant finding. IMPRESSION: CARDIAC ENLARGEMENT. VASCULAR CONGESTION. TECHNICAL DOCUMENTATION: JOB ID: [id number] [employer]- All Rights Reserved Reading location - IP/workstation name: [email or web address]
--- NOTE | 2018-07-25 19:35 | ER Document Report ---
ED General - General Chief Complaint: General Weakness Stated Complaint: WEAKNESS Time Seen by Provider: 07/25/18 16:43 Primary Care Provider: JACQUELYN WELCH MD [Primary Care Provider] - Follow up as needed Mode of Arrival: Medic Information source: Patient Notes: Patient is a 63-year-old male presenting to the emergency department with complaint of heat exhaustion. Patient reports that he was out sitting in an enclosed shed doing some work and also drinking beers when he felt faint. He states that that is the reason he called 911. Patient reports he drank at least 4 beers. Patient states that he was feeling fine and he thinks that he just got overheated. Patient reports that he only drank approximately 1 bottle of water today. The temperature today in this area was in the mid 90s. Patient denies any other complaints. TRAVEL OUTSIDE OF THE [place] IN LAST 30 DAYS: No - Related Data Allergies/Adverse Reactions: No Known Allergies Allergy (Verified 12/23/16 09:06) Past Medical History - General Information source: Patient - Social History Smoking Status: Current Every Day Smoker Frequency of alcohol use: LAST USED TODAY Drug Abuse: None Family History: Reviewed & Not Pertinent Patient has suicidal ideation: No Patient has homicidal ideation: No - Past Medical History Cardiac Medical History: Reports: Hx Hypercholesterolemia, Hx Hypertension Pulmonary Medical History: Reports: Hx COPD Neurological Medical History: Reports: Hx Seizures Renal/ Medical History: Denies: Hx Peritoneal Dialysis Past Surgical History: Reports: Hx Abdominal Surgery, Hx Cardiac Surgery, Hx Open Heart Surgery - Immunizations Hx Diphtheria, Pertussis, Tetanus Vaccination: No Review of Systems - Review of Systems Constitutional: Malaise EENT: No symptoms reported Cardiovascular: No symptoms reported Respiratory: No symptoms reported Gastrointestinal: No symptoms reported Genitourinary: No symptoms reported Male Genitourinary: No symptoms reported Musculoskeletal: No symptoms reported Skin: No symptoms reported Hematologic/Lymphatic: No symptoms reported Neurological/Psychological: No symptoms reported Physical Exam - Vital signs Vitals: Temp Resp BP 98.7 F 15 94/62 L 07/25/18 16:17 07/25/18 16:17 07/25/18 16:17 - Notes Notes: PHYSICAL EXAMINATION: GENERAL: Well-appearing, well-nourished and in no acute distress. HEAD: Atraumatic, normocephalic. EYES: Pupils equal round and reactive to light, extraocular movements intact, sclera anicteric, conjunctiva are normal. ENT: Nares patent, oropharynx clear without exudates. Moist mucous membranes. NECK: Normal range of motion, supple without lymphadenopathy LUNGS: Breath sounds clear to auscultation bilaterally and equal. No wheezes rales or rhonchi. HEART: Regular rate and rhythm without murmurs ABDOMEN: Soft, nontender, nondistended abdomen. No guarding, no rebound. No masses appreciated. Musculoskeletal: Normal range of motion, no pitting or edema. No cyanosis. NEUROLOGICAL: Cranial nerves grossly intact. Normal speech, normal gait. Normal sensory, motor exams PSYCH: Normal mood, normal affect. SKIN: Warm, Dry, normal turgor, no rashes or lesions noted. Course - Re-evaluation Re-evalutation: Patient arrives alert, oriented and in no acute distress. His vital signs were within normal limits during his emergency department stay. His physical examination was unremarkable. Labs as recorded. He did show hyponatremia with a sodium level of 125. This is likely secondary to his chronic alcoholism. He did receive 2 L of IV fluids here in the emergency department. He maintained normal vital signs. He is requesting to go home at this time and his is at the bedside. Patient will be discharged home in stable condition. - Vital Signs Vital signs: Temp Pulse Resp BP Pulse Ox 98.7 F 101 H 15 138/98 H 99 07/25/18 20:13 07/25/18 20:13 07/25/18 20:13 07/25/18 20:13 07/25/18 18:01 - Laboratory Result Diagrams: 07/25/18 16:24 07/25/18 16:24 Laboratory results interpreted by me: 07/25/18 07/25/18 07/25/18 16:24 16:24 18:22 RBC 3.91 L Hgb 13.0 L MCV 98 H RDW 16.6 H Sodium 125.1 L Chloride 90 L Calcium 7.9 L Total Protein 6.0 L Urine Blood SMALL H Discharge - Discharge Clinical Impression: Hyponatremia Heat exhaustion Qualifiers: Encounter type: initial encounter Qualified Code(s): T67.5XXA - Heat exhaustion, unspecified, initial encounter Condition: Stable Disposition: HOME, SELF-CARE Additional Instructions: Please drink plenty of fluids if you need to be out in the heat. Please cut way back on the amount of alcohol that you consume. Please follow-up with your primary care provider. Return to the emergency department for any new or worsening symptoms. Referrals: JACQUELYN WELCH MD [Primary Care Provider] - Follow up as needed
[2018-07-25 19:40] LABS: APPEARANCE,URINE CLEAR; BILIRUBIN,URINE NEGATIVE (NEGATIVE); COLOR,URINE YELLOW; GLUCOSE, URINE NEGATIVE (NEGATIVE); KETONES,URINE NEGATIVE (NEGATIVE); LEUKOCYTE ESTERASE,URINE NEGATIVE (NEGATIVE); NITRITE,URINE NEGATIVE (NEGATIVE); PROTEIN,URINE NEGATIVE (NEGATIVE); URINE SPECIFIC GRAVITY 1.009; UROBILINOGEN,URINE NEGATIVE mg/dL (<2.0)
[2018-07-25 20:15] VITALS: BP 138/98
--- NOTE | 2018-07-25 22:31 | EKG REPORT ---
SEVERITY:- ABNORMAL ECG - SINUS RHYTHM RVH WITH SECONDARY REPOLARIZATION ABNORMALITY : Confirmed by: Rell Munguia 25-Jul-2018 22:30:45
== END 2018-07-25 20:13 | disposition home or self-care (01) ==
LOC: ER 16:02
DX: R53.1 Weakness (principal); E87.1 Hypo-osmolality and hyponatremia; T67.5XXA Heat exhaustion, unspecified, initial encounter; X30.XXXA Exposure to excessive natural heat, initial encounter; Y92.009 Unspecified place in unspecified non-institutional (private) residence as the place of occurrence of the external cause; F17.200 Nicotine dependence, unspecified, uncomplicated; I10 Essential (primary) hypertension; E78.00 Pure hypercholesterolemia, unspecified; J44.9 Chronic obstructive pulmonary disease, unspecified
CPT/HCPCS: 93005; 94640; 99284; 36415; 85025; 80053; 81001; 71045; 93010; A9270 ×2; J7030; 96360; 96361; J7512; J7620